=== PATIENT | male | born 1990 | race Asian ===

== ENCOUNTER 2024-10-12 21:15 | Emergency (ER) | payer SELFPAY ==
[2024-10-12 21:16] VITALS: BP 147/91; PULSE 65; RESP 20; TEMP 36.8; O2SAT 100
--- NOTE | 2024-10-12 21:29 | EDS_ITS ---
HPI <MARY Diaz - Last Filed: 10/12/24 21:49> History of Present Illness Chief Complaint: Weakness Narrative Narrative: 34-year-old male states he has stage IV renal cancer on immunotherapy. He has been on treatment for over a year at the [facility] in [place]. He is here in [place] visiting his parents and states over the last day he has developed increased generalized body pain, nausea, diarrhea, and hand swelling. Both his hands are always swollen in the morning but usually improve throughout the day but they have remained swollen all day. He has no chest pain, shortness of breath or cough. No fever or chills. He states he has lost 20 to 30 pounds in the last 2 months. He gets immunotherapy infusions every 2 weeks and is due for treatment in 2 days. PFSH <MARY Diaz - Last Filed: 10/12/24 21:49> [facility] Home Medications ?Medication ?Instructions ?Recorded ?Last Taken ?Type ondansetron 4 mg disintegrating 4 mg PO Q6H PRN nausea and 10/12/24 Unknown Rx tablet vomiting #10 tabs oxycodone 15 mg tablet,crush 15 mg PO BID 5 days #10 t abs 10/12/24 Unknown Rx resistant,extended release 12 hr (OxyContin) Allergy/AdvReac Type Severity Reaction Status Date / Time No Known Allergies Allergy Verified 10/12/24 21:16 Surgical History (Updated 10/12/24 @ 22:15 by Paola Martins) H/O kidney removal Social History Smoking Status: Current every day smoker tobacco type: e-cigarettes ROS <MARY Diaz - Last Filed: 10/12/24 21:49> ROS ED ROS Narrative Constitutional: Negative for fever, chills. CVS: Negative for chest pain, syncope. Respiratory: Negative for shortness of breath, cough. GI: Positive for nausea, diarrhea. Negative for abdominal pain, vomiting constipation, melena, hematochezia. : Negative for dysuria. Neuro: Negative for headache. EXAM <MARY Diaz - Last Filed: 10/12/24 21:49> Physical Exam Narrative Exam Narrative: CONST: Patient [does not feel well, nontoxic. EYES: Normal inspection. ENT: Normal inspection, moist mucous membranes. NECK: Normal inspection. RESP: No respiratory distress, CTAB. CVS: Regular rate and rhythm, no murmur, no gallop. ABD: Soft with generalized tenderness, no guarding or rebound, nondistended, no hepatosplenomegaly. SKIN: Color normal, no rash, warm, dry, intact. EXTREMITIES: Bilateral hand swelling. Dry skin. No erythema or rash. Full range of motion, 2+ radial pulses. NEURO: Alert and answering questions appropriately. PSYCH: Normal affect. Const Vital Signs: 10/12/24 21:16 10/12/24 22:13 Temperature 98.2 F Temperature Source Temporal Pulse Rate 65 Respiratory Rate 20 H Respiratory Effort Normal Respiratory Pattern Normal Blood Pressure 147/91 H Blood Pressure Mean 109 Pulse Ox 100 Oxygen Delivery Method Room Air <Dr. Ameya Stallings MD - Last Filed: 10/12/24 23:16> Physical Exam Const Vital Signs: 10/12/24 21:16 10/12/24 22:13 Temperature 98.2 F Temperature Source Temporal Pulse Rate 65 Respiratory Rate 20 H Respiratory Effort Normal Respiratory Pattern Normal Blood Pressure 147/91 H Blood Pressure Mean 109 Pulse Ox 100 Oxygen Delivery Method Room Air MDM <MARY Diaz - Last Filed: 10/12/24 21:49> [facility] Narrative Medical decision making narrative: 34-year-old male states he has stage IV renal cancer on immunotherapy presenting with 2 days of generalized body pain, nausea, diarrhea. He appears well and nontoxic. Vital signs stable. Afebrile. He has generalized abdominal tenderness without peritoneal signs. Could be viral illness so swab be obtained as well as labs and IV fluids and Zofran given. Lab Data Labs: Laboratory Results - last 24 hr 10/12/24 21:58 WBC 6.2 RBC 3.43 L Hgb 9.5 L Hct 28.8 L MCV 84.0 MCH 27.7 MCHC 33.0 RDW Std Deviation 42.8 RDW Coeff of Angie 14.3 Plt Count 326 MPV 8.9 Immature Gran % (Auto) 0.800 Neut % (Auto) 67.7 Lymph % (Auto) 10.4 L Sargent % (Auto) 10.1 H Eos % (Auto) 10.4 H Baso % (Auto) 0.6 Absolute Neuts (auto) 4.2 Absolute Lymphs (auto) 0.64 L Nucleated RBC % 0 Sodium 135 Potassium 4.5 Chloride 104 Carbon Dioxide 20.4 L Anion Gap 10 BUN 19 Creatinine 1.10 Est GFR (MDRD) Non-Af 89 BUN/Creatinine Ratio 17.4 Glucose 102 H Calcium 8.9 Total Bilirubin 0.19 Direct Bilirubin 0.11 AST 56 H ALT 84 H Alkaline Phosphatase 103 Total Protein 6.2 Albumin 3.5 Globulin 2.7 Lipase 70 <Dr. Ameya Stallings MD - Last Filed: 10/12/24 23:16> MDM MDM Narrative Medical decision making narrative: I have personally performed a face to face assessment of the patient and have reviewed the GREER Note. I performed a substantive portion of the visit including all aspects of the following. My davison findings include: History is 34-year-old male from the [place] area. Has a history of stage IV renal cancer. Currently undergoing immunotherapy through [facility]. States he has not felt well last several days with nausea, vomiting, and diarrhea. Generalized weakness. Denies any dysuria. No documented fever. Exam is [34-year-old male vital signs stable afebrile. Family members present. No acute distress. Pulse ox 100% no hypoxia. H EENT exam pupils round reactive light. Moist mucous membranes. Neck nontender no meningismus. No lymphadenopathy. Trachea midline. Lungs Lear to auscultation bilaterally. Heart regular rhythm rate about 65 no murmur. Chest wall ribs nontender. Abdomen soft nondistended normal bowel sounds without peritoneal signs. No hernia or mass. No distention. Moving all 4 extremities. Nontender no edema. Normal motor strength and range of motion. Back nontender. Skin no rashes. Neurologically is awake and alert no focal motor deficits. Answer questions following commands.] Medical Decision Making [34-year-old male with stage IV renal CA may have a viral syndrome. Screening labs are found to be obtained. IV fluids and Zofran.] Other additions or changes: [Patient improving at 11:05 PM. History exam and labs are consistent with a viral gastroenteritis. Will be discharged to home with p.o. Zofran. Fluids. Rest. Follow-up with his oncologist. While he is in town here return to emergency department if he is feeling worse. Unable to keep fluids down.] History & Record Review Discussion w/independent historian: Patient and Family Additional record(s) reviewed:: No prior records Lab Data Attestation: I reviewed the patient's lab results. Lab results narrative: CBC showed a white count of 6. H&H 9.5 and 28. We have no old labs available for comparison. Platelets 326. Chemistries show a sodium 135. Gap of 10. Normal BUN and creatinine of 19 and 1. Glucose 102. Liver enzymes show a mildly elevated AST of 56 and ALT of 84. Lipase is normal at 70. COVID, flu and RSV are negative. Labs: Laboratory Results - last 24 hr 10/12/24 21:58 WBC 6.2 RBC 3.43 L Hgb 9.5 L Hct 28.8 L MCV 84.0 MCH 27.7 MCHC 33.0 RDW Std Deviation 42.8 RDW Coeff of Angie 14.3 Plt Count 326 MPV 8.9 Immature Gran % (Auto) 0.800 Neut % (Auto) 67.7 Lymph % (Auto) 10.4 L Sargent % (Auto) 10.1 H Eos % (Auto) 10.4 H Baso % (Auto) 0.6 Absolute Neuts (auto) 4.2 Absolute Lymphs (auto) 0.64 L Nucleated RBC % 0 Sodium 135 Potassium 4.5 Chloride 104 Carbon Dioxide 20.4 L Anion Gap 10 BUN 19 Creatinine 1.10 Est GFR (MDRD) Non-Af 89 BUN/Creatinine Ratio 17.4 Glucose 102 H Calcium 8.9 Total Bilirubin 0.19 Direct Bilirubin 0.11 AST 56 H ALT 84 H Alkaline Phosphatase 103 Total Protein 6.2 Albumin 3.5 Globulin 2.7 Lipase 70 Discharge Plan Triage Chief Complaint: Weakness ED Midlevel Provider: Orquidea Borja ED Provider: Ameya Stallings Dx/Rx/DC Orders Clinical Impression: Nausea, vomiting and diarrhea, Viral gastroenteritis, History of kidney cancer Instructions: ED Gastroenteritis, Viral (Adult) Prescriptions: New ondansetron 4 mg tablet,disintegrating 4 mg PO Q6H PRN (Reason: nausea and vomiting) Qty: 10 0RF oxycodone [OxyContin] 15 mg tablet,oral only,ext.rel.12 hr 15 mg PO BID 5 Days Qty: 10 0RF Primary Care Provider: Care Physician,No Primary Referrals: Care Physician,No Primary [Primary Care Provider] - Print Language: Kiswahili
[2024-10-12] MEDS: Ondansetron 4 MG/2 ML Vial IV ×2 (22:00→23:33)
[2024-10-12] MEDS: 0.9% Normal Saline (1000mL) 1,000 ML 999 ML IV (22:00)
[2024-10-12 22:21] LABS: Absolute Lymphocyte Count 0.64 X10^3/uL (0.83-4.51); Absolute Neutrophil Count 4.2 X10^3/uL (2.0-7.7); Basophil# 0.04 X10^3/uL; Basophil% 0.6 % (0-1); Eosinophil# 0.64 X10^3/uL; Eosinophils% 10.4 % (0-5); Hematocrit 28.8 % (40-54); Hemoglobin 9.5 g/dL (13.0-16.5); Lymphocyte # 0.64 X10^3/ul (0.83-4.51); Lymphocyte % 10.4 % (19-41); Mean Corpuscular Hgb 27.7 pg (27.0-32.0); Mean Platelet Vol. 8.9 fl (6.2-12.0); Monocyte# 0.62 X10^3/uL; Monocyte% 10.1 % (0-10); NRBC Flagged by Analyzer 0 % (0-5); Neutrophil # 4.17 X10^3/uL (2.7-7.7); Neutrophil % 67.7 % (47-70); Platelet Count 326 K/mm3 (150-450); RBC Distribution Width CV 14.3 % (11.6-14.6); RBC Distribution Width SD 42.8 fl (35.1-43.9); Red Blood Count 3.43 M/mm3 (4.6-6.2); White Blood Count 6.2 K/mm3 (4.4-11.0)
[2024-10-12] MEDS: morphine 8 MG/ML Syringe 6 MG IV (22:22)
[2024-10-12 22:45] LABS: AST(SGOT) 56 U/L (<=37); Alanine Aminotransfer ALT/SGPT 84 U/L (<=46); Albumin, Serum 3.5 g/dL (3.5-5.0); Alkaline Phosphatase 103 U/L (40-129); Anion Gap 10 (5-15); BUN 19 mg/dL (4-19); BUN/Creat Ratio 17.4 RATIO (10-20); Bilirubin, Direct 0.11 mg/dL (0.00-0.30); Calcium,Total 8.9 mg/dL (7.6-11.0); Carbon Dioxide 20.4 mmol/L (21.0-32.0); Chloride 104 mmol/L (98-108); EST Glomerular Filtration Rate 89 (>60); Globulin 2.7 g/dL (2.2-4.2); Glucose 102 mg/dL (70-99); Lipase 70 U/L (13-75); Potassium 4.5 mmol/L (3.3-5.1); Protein, Total 6.2 g/dL (5.9-8.4); Sodium Level 135 mmol/L (133-145); Total Bilirubin 0.19 mg/dL (0.00-1.30)
[2024-10-12 23:14] VITALS: BP 161/97; PULSE 63; RESP 18; TEMP 36.6; O2SAT 100
[2024-10-12 23:15] VITALS: BP 161/97; PULSE 60; RESP 18; O2SAT 100
== END 2024-10-12 23:40 | disposition home or self-care (01) ==
PROVIDERS: Physician Assistant; Emergency Provider Emergency Medicine; Visit Provider Emergency Medicine
DX: A08.4 Viral intestinal infection, unspecified (principal); C64.9 Malignant neoplasm of unspecified kidney, except renal pelvis; R53.1 Weakness; R11.2 Nausea with vomiting, unspecified; F17.290 Nicotine dependence, other tobacco product, uncomplicated; M79.89 Other specified soft tissue disorders
CPT/HCPCS: 36591; 80048; 80076; 83690; 85025; 87631; 96361; 96374; 96375; 96376; 99282; A4216; J2405